=== PATIENT | male | born 2005 | race Caucasian/White ===

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

== ENCOUNTER 2023-05-24 02:40 | Emergency (ER) | payer SELFPAY ==
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
[2023-05-24 02:40] VITALS: BP 124/89; PULSE 97; RESP 20; TEMP 36.7; O2SAT 98
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
== END 2023-05-24 03:58 | disposition home or self-care (01) ==
PROVIDERS: Emergency Provider Emergency Medicine
DX: S06.0X0A Concussion without loss of consciousness, initial encounter (principal); Y04.2XXA Assault by strike against or bumped into by another person, initial encounter
CPT/HCPCS: 70450; 70486; 72125; 99284